=== PATIENT | female | born 1965 | race Caucasian/White ===

== ENCOUNTER → 2016-08-26 | Emergency (ER) | payer BC ==
[2016-08-26 18:22] VITALS: BP 125/106; PULSE 79; RESP 14; TEMP 98.6; O2SAT 96
--- NOTE | 2016-08-26 19:02 | UCPHY ---
H & P Patient Type: Established Chief Complaint Nursing Narrative: fever, pain,swelling,redness LLE for 1 day Time Seen by Provider: 08/26/16 18:50 HPI/ROS: CHIEF COMPLAINT: Cellulitis HISTORY OF PRESENT ILLNESS: The patient is a 51-year-old female with a history of type 2 diabetes who comes to the Urgent Care complaining of some erythema to her left leg. She 1st noticed it this morning. She had something similar 4 years ago that resulted in hospitalization in a diagnosis of sepsis. She denies any recent trauma or injury. She had a fever yesterday but does not today. No body aches. No difficulty breathing, no lightheadedness. REVIEW OF SYSTEMS: Constitutional: denies: chills, fever, recent illness, recent injury EENTM: denies: blurred vision, double vision, nose congestion Respiratory: denies: cough, shortness of breath Cardiac: denies: chest pain, irregular heart rate, lightheadedness, palpitations Gastrointestinal/Abdominal: denies: abdominal pain, diarrhea, nausea, vomiting, blood streaked stools Genitourinary: denies: dysuria, frequency, hematuria, pain Musculoskeletal: denies: joint pain, muscle pain Skin: See HPI Neurological: denies: headache, numbness, paresthesia, tingling, dizziness, weakness Hematologic/Lymphatic: denies: blood clots, easy bleeding, easy bruising Immunologic/allergic: denies: HIV/AIDS, transplant EXAM: GENERAL: Well-appearing, well-nourished and in no acute distress. HEAD: Atraumatic, normocephalic. EYES: Pupils equal round and reactive to light, extraocular movements intact, sclera anicteric, conjunctiva are normal. ENT: TMs normal, nares patent, oropharynx clear without exudates. Moist mucous membranes. NECK: Normal range of motion, supple without lymphadenopathy or JVD. LUNGS: Breath sounds clear to auscultation bilaterally and equal. No wheezes rales or rhonchi. HEART: Regular rate and rhythm without murmurs, rubs or gallops. ABDOMEN: Soft, nontender, normoactive bowel sounds. No guarding, no rebound. No masses appreciated. BACK: No CVA tenderness, no spinal tenderness, step-offs or deformities EXTREMITIES: Normal range of motion, no pitting or edema. No clubbing or cyanosis. NEUROLOGICAL: Cranial nerves II through XII grossly intact. Normal speech, normal gait. 5/5 strength, normal movement in all extremities, normal sensation PSYCH: Normal mood, normal affect. SKIN: 6 x 10 area of mild erythema over medial aspect of left lower leg. Several small healing wounds within the area. Mildly warm to the touch. No edema. Source: Patient Exam Limitations: No limitations - Personal History Current Tetanus Diphtheria and Acellular Pertussis (TDAP): Yes Tetanus Vaccine Date: unsure - Medical/Surgical History Hx Asthma: No Hx Chronic Respiratory Disease: No Hx Diabetes: Yes Hx Cardiac Disease: No Hx Renal Disease: No Hx Cirrhosis: No Hx Alcoholism: No Hx HIV/AIDS: No Hx Splenectomy or Spleen Trauma: No Other PMH: LAMENECTOMY L4-5, HYSTERECTOMY, C-SECT X3, ACHILIES TENDON, DEPRESSION, HTN,diabetes,thyroidectomy,parathyroidectomy,lithotripsy - Family History Significant Family History: No pertinent family hx - Social History Smoking Status: Never smoked Alcohol Use: None Drug Use: None Constitutional: Initial Vital Signs Temperature (C) 37 C 08/26/16 18:19 Heart Rate 79 08/26/16 18:19 Respiratory Rate 14 08/26/16 18:19 Blood Pressure 125/106 H 08/26/16 18:19 O2 Sat (%) 96 08/26/16 18:19 O2 Delivery Mode Room Air Allergies/Adverse Reactions: hydromorphone HCl [From Dilaudid] Allergy (Verified 08/26/16 18:17) Home Medications: Medication Instructions Recorded Effexor 01/29/16 Furosemide 01/29/16 Lisinopril 01/29/16 Potassium 01/29/16 Allopurinol 08/26/16 Cephalexin [Keflex] 500 mg PO TID #21 cap 08/26/16 Fluconazole [Diflucan (*)] 150 mg PO ONCE #1 tab 08/26/16 Metformin 1000 mg 08/26/16 Sulfamethox/Tmp 800/160 mg 1 tab PO BID #14 tab 08/26/16 [Bactrim Ds] Medical Decision Making ED Course/Re-evaluation: Patient has an early lower extremity cellulitis. She has x-rays on her phone of earlier this morning when actually looked worse. Start her on Keflex and Bactrim have her follow up with her primary within 48 hours. She understands and agrees with this plan. She declines any further workup or testing at this time. Differential Diagnosis: Partial list of the Differential diagnosis considered include but were not limited to; cellulitis, diabetic foot infection and although unlikely based on the history and physical exam, I also considered sepsis, osteomyelitis, abscess. I discussed these differential diagnoses and the plan with the patient as well as the usual and expected course. The patient understands that the diagnosis is provisional and that in medicine we are not always correct and that further workup is often warranted. Usual and customary warnings were given. All of the patient's questions were answered. The patient was instructed to return to the emergency department should the symptoms at all worsen or return, otherwise to followup with the physician as we discussed. Departure - Departure Disposition: Home, Routine, Self-Care Clinical Impression: Cellulitis Qualifiers: Site of cellulitis: extremity Site of cellulitis of extremity: lower extremity Laterality: left Qualified Code(s): L03.116 - Cellulitis of left lower limb Condition: Fair Instructions: Cellulitis (ED) Additional Instructions: Do not take your potassium supplement while your taking Bactrim. It can in decrease your potassium. Referrals: ABRAHAM JACKSON [Primary Care Provider] - 1-2 days without fail Prescriptions: Cephalexin [Keflex] 500 mg PO TID #21 cap Fluconazole [Diflucan (*)] 150 mg PO ONCE #1 tab Sulfamethox/Tmp 800/160 mg [Bactrim Ds] 1 tab PO BID #14 tab - PQRS PQRS Measurement: not applicable
== END | disposition home or self-care (01) ==
LOC: CED 18:04
DX: L03.116 Cellulitis of left lower limb (principal); E11.9 Type 2 diabetes mellitus without complications; I10 Essential (primary) hypertension
CPT/HCPCS: G0463-PO

== ENCOUNTER 2017-01-09 16:34 | Emergency (ER) | payer BC ==
[2017-01-09 16:45] VITALS: RESP 18; TEMP 98
[2017-01-09] MEDS ORDERED: OXYCODONE/APAP 5/325 TAB PO ONE (17:06)
[2017-01-09] MEDS ORDERED: DEXAMETHASONE 4 MG TAB PO ONE (17:07)
[2017-01-09] MEDS ORDERED: LIDOCAINE 5% 1 EA PATCH TD ONE (17:10)
--- NOTE | 2017-01-09 17:11 | EDPHY ---
H & P Time Seen by Provider: 01/09/17 16:48 HPI/ROS: CHIEF COMPLAINT: Back pain HISTORY OF PRESENT ILLNESS: 51-year-old female who has a long history of chronic low back pain and had a laminectomy 1995 presents with left-sided back discomfort radiating onto the anterior thigh. Patient had a deep tissue massage on Tuesday, specifically targeting the paraspinous muscles on the right and left lumbar area. She woke on Tuesday morning with significant pain in the left lower back. She tells me she was unable to get out of bed secondary to the pain. Pain has been persistent in her back and radiating onto the anterior thigh. She has had no pain below the level of the knee. She has been taking ibuprofen and using ice with some relief. No bowel or bladder difficulties. She took a friend's Soma today at 2 o'clock. She is concerned regarding her ability to go to work tomorrow. No fever, chills, chest pain, shortness of breath, palpitations, vomiting, diarrhea, urinary complaints, headache, lightheadedness. REVIEW OF SYSTEMS: Aside from elements discussed in the HPI, a comprehensive 10-point review of systems was reviewed and is negative. PAST MEDICAL HISTORY: Recently diagnosed with thyroid carcinoma status post thyroidectomy. Recently diagnosed with diabetes. SOCIAL HISTORY: Nonsmoker. General appearance: Alert, oriented, no acute respiratory distress. Some difficulty getting in and out of the gurney. Lungs are clear to auscultation. Regular rate and rhythm. Abdomen soft and nontender, no guarding or rebound. No CVA tenderness. Focused examination of back: No trauma is noted. No tenderness to palpation along the spine. Left Paraspinous muscle spasm is present. Neurological exam: Straight leg raise test is negative bilaterally. Hip flexion, knee extension, knee flexion, dorsiflexion and plantar flexion are 5/ 5 bilaterally. EHL 5 over 5. Sensation is intact to light touch throughout. 2 + knee and ankle jerk bilaterally. Vascular exam: Dorsalis pedis and posterior tibial pulses are intact. Brisk capillary refill. Smoking Status: Never smoked Constitutional: Initial Vital Signs Temperature (C) 36.6 C 01/09/17 16:43 Heart Rate 82 01/09/17 16:43 Respiratory Rate 18 01/09/17 16:43 Blood Pressure 149/81 H 01/09/17 16:43 O2 Sat (%) 97 01/09/17 16:43 O2 Delivery Mode Room Air Allergies/Adverse Reactions: hydromorphone HCl [From Dilaudid] Allergy (Verified 08/26/16 18:17) Home Medications: Medication Instructions Recorded Effexor 01/29/16 Furosemide 01/29/16 Lisinopril 01/29/16 Potassium 01/29/16 Allopurinol 08/26/16 Fluconazole [Diflucan (*)] 150 mg PO ONCE #1 tab 08/26/16 Metformin 1000 mg 08/26/16 Cyclobenzaprine [Flexeril 10 MG 10 mg PO TID PRN #20 tab 01/09/17 (RX)] methylPREDNISolone [Medrol Dose 4 mg PO DAILY #1 each 01/09/17 Tripp] oxyCODONE/APAP 5/325 [Percocet 1 tab PO QID PRN #20 tab 01/09/17 5/325 (*)] Medical Decision Making ED Course/Re-evaluation: 53-year-old female with history of back pain presents with a exacerbation of her pain after receiving a deep tissue massage 2 days ago. Patient has no evidence of acute disc herniation. She does have pain which radiates onto the anterior thigh. There is no weakness. No signs of cauda equina. Patient does report that she has kidney stones in the right kidney. Urinalysis was checked to evaluate for signs of significant myoglobin anemia or dehydration from the deep tissue massage. Patient has negative ketones, negative glucose, 3-5 red cells in her urine. I do not believe she has a kidney stone complicating her presentation. Patient had taken ibuprofen and Soma prior to presentation. In the emergency department she received a lidocaine patch, Decadron 8 mg p.o., and a Percocet tablet. She was discharged with a Percocet prepack, Flexeril prepack, and a prescription for Medrol Dosepak, Flexeril, and Percocet. Patient was referred to Neurosurgery to follow-up if her symptoms were not improving as expected. She also follow up with the primary care physician. Precautions regarding back pain are given. Differential Diagnosis: After history was obtained and physical exam performed, the differential for back pain was considered including but not limited to muscular pain, herniated disc, spine fracture, cauda equina, diskitis, transverse myelitis, intra-abdominal causes, and urinary tract infection. - Data Points Laboratory Results: 01/09/17 17:35 Urine Color YELLOW Urine Appearance CLEAR Urine pH 5.5 (5.0-7.5) Ur Specific [place] 1.020 (1.002-1.030) Urine Protein NEGATIVE (NEGATIVE) Urine Ketones NEGATIVE (NEGATIVE) Urine Blood 1+ H (NEGATIVE) Urine Nitrate NEGATIVE (NEGATIVE) Urine Bilirubin NEGATIVE (NEGATIVE) Urine Urobilinogen 0.2 EU EU (0.2-1.0) Ur Leukocyte Esterase NEGATIVE (NEGATIVE) Urine RBC 3-5 /hpf H /hpf (0-3) Urine WBC 0-1 /hpf /hpf (0-3) Ur Epithelial Cells 3+ /lpf H /lpf (NONE-1+) Amorphous Sediment 1+ /hpf /hpf (NONE-1+) Urine Bacteria 2+ /hpf H /hpf (NONE SEEN) Urine Mucus 1+ /lpf /lpf (NONE-1+) Urine Glucose NEGATIVE (NEGATIVE) Medications Given: Discontinued Medications Dexamethasone (Decadron) 8 mg PO EDNOW ONE Stop: 01/09/17 17:08 Last Admin: 01/09/17 17:25 Dose: 8 mg Lidocaine (Lidoderm 5%) 1 ea TD EDNOW ONE Stop: 01/09/17 17:11 Last Admin: 01/09/17 17:27 Dose: 1 ea Oxycodone/Acetaminophen (Percocet 5/325) 1 tab PO EDNOW ONE Stop: 01/09/17 17:07 Last Admin: 01/09/17 17:27 Dose: 1 tab Oxycodone/Acetaminophen (Percocet 5/325mg Prepack#4) 1 btl TAKEHOME EDNOW ONE Stop: 01/09/17 17:30 Last Admin: 01/09/17 17:33 Dose: 1 btl Departure - Departure Disposition: Home, Routine, Self-Care Clinical Impression: Back pain Qualifiers: Back pain location: low back pain Chronicity: acute Back pain laterality: left Sciatica presence: without sciatica Qualified Code(s): M54.5 - Low back pain Condition: Good Instructions: Acute Low Back Pain (ED), Lumbar Radiculopathy (ED) Additional Instructions: Musculoskeletal pain is often treated with anti-inflammatories, muscle relaxants , and pain medications. 1.I recommend Ibuprofen (Motrin, Advil) or Naproxen Sodium (Aleve) for pain and anti-inflammatory effects. You may take either one, but do not take both. Your dose is: Ibuprofen 600 mg every 6-8 hours with food. OR Naproxen Sodium (Aleve) 220 mg every 12 hours. You have also been given a prescription for a Medrol Dosepak to use as directed to treat inflammation. Please begin taking this tomorrow. 2. For muscle relaxation, you been given a prescription of Flexeril. Please take this as directed. It may make you sleepy. 3. For pain relief, I suggest high-dose Tylenol (650mg-1000mg of Tylenol) up to 3 times a day. Not exceed 3000 mg in a 24 hour period. I also suggest lidocaine patches. 4% lidocaine patches are available over-the- counter. 4. You been given a prescription for oxycodone. You may use this as needed for pain not controlled with the above treatments. Apply ice for 20-30 minutes every 2-3 hours for the next 48 hours. After 48 hours, a heating pad or hot tub may feel better. Please follow up with your primary care physician if you're not improving as expected in the next several days. Consider physical therapy or chiropractic followup for persistent discomfort. Return to the emergency department if you experience significantly worsening pain, pain radiating into the legs, weakness, numbness or tingling, difficulties with bowel or bladder, fever, nausea, vomiting, or other concerns. Referrals: Armando Davies MD [Medical Doctor] - As per Instructions Stand Alone Forms: Work Excuse Prescriptions: Cyclobenzaprine [Flexeril 10 MG (RX)] 10 mg PO TID PRN #20 tab PRN Reason: Muscle Spasms methylPREDNISolone [Medrol Dose Tripp] 4 mg PO DAILY #1 each oxyCODONE/APAP 5/325 [Percocet 5/325 (*)] 1 tab PO QID PRN #20 tab PRN Reason: Pain
[2017-01-09] MEDS ORDERED: OXYCODONE/APAP 5/325MG PREPACK#4 BTL TAKEHOME ONE ×2 (17:20→17:29)
[2017-01-09 17:39] LABS: COLOR YELLOW; LEUKOCYTE ESTERASE,URINE NEGATIVE (NEGATIVE); NITRITE,URINE NEGATIVE (NEGATIVE); PH,URINE 5.5 (5.0-7.5)
[2017-01-09 17:48] LABS: BACTERIA 2+ /hpf (NONE SEEN); MUCUS 1+ /lpf (NONE-1+); WBC,URINE 0-1 /hpf (0-3)
[2017-01-09 17:49] LABS: AMORPHOUS 1+ /hpf (NONE-1+)
[2017-01-09 18:03] VITALS: O2SAT 94
[2017-01-09 18:04] VITALS: BP 147/85; PULSE 75
[2017-01-09] MEDS ORDERED: PATCH REMOVAL 1 EA PATCH TD SCH (21:00)
== END 2017-01-09 18:08 | disposition home or self-care (01) ==
LOC: CED 16:34
DX: M54.5 Low back pain (principal); E11.9 Type 2 diabetes mellitus without complications; Z79.84 Long term (current) use of oral hypoglycemic drugs; Z85.850 Personal history of malignant neoplasm of thyroid
CPT/HCPCS: 81003-PO; 81015-PO

== ENCOUNTER 2018-03-08 18:57 | Emergency (ER) | payer BC ==
[2018-03-08] MEDS ORDERED: HALOPERIDOL LACT 5 MG/ML INJ IVP ONE ×2 (19:32→20:33)
--- NOTE | 2018-03-08 19:37 | EDPHY ---
H & P Stated Complaint: c/o N/V/D abd and Lt flank pain since yesterday Time Seen by Provider: 03/08/18 19:01 HPI/ROS: CHIEF COMPLAINT: Diarrhea and abdominal pain History by patient HISTORY OF PRESENT ILLNESS: 49-year-old woman with a history of multiple C- sections, kidney stones, hypertension and diabetes presents complaining of 2 days of which he describes as black the"bloody and"diarrhea associated with nausea and vomiting. Symptoms persisted today and then she developed lower abdominal pain which she describes as feeling like she was kicked in the lower abdomen. She also says she has some mild left lower back pain with the abdominal pain is worse and feels different than the usual kidney stone. She has no prior history of GI bleeding. She denies NSAID use. She does drink several glasses of wine daily, but has not been drinking more than usual.. She denies syncope but says this is the worst she has ever felt in her life. She did not fill any of her medicines except for metformin today because of the nausea and vomiting although she was able to eat [employer] in the middle today. She denies any fever. She denies any dysuria, urgency or frequency or hematuria. She has not taken anything for this symptoms at home. She denies any unusual food exposures or ill contacts. She says her blood sugars have been 120 and 170 today. REVIEW OF SYSTEMS: As in HPI, and all other systems reviewed and are negative Source: Patient - Personal History LMP (Females 10-55): Hysterectomy Current Tetanus Diphtheria and Acellular Pertussis (TDAP): Yes Tetanus Vaccine Date: unsure - Medical/Surgical History Hx Asthma: No Hx Chronic Respiratory Disease: No Hx Diabetes: Yes Hx Cardiac Disease: No Hx Renal Disease: No Hx Cirrhosis: No Hx Alcoholism: No Hx HIV/AIDS: No Hx Splenectomy or Spleen Trauma: No Other PMH: LAMENECTOMY L4-5, HYSTERECTOMY, C-SECT X3, ACHILIES TENDON, DEPRESSION, HTN,diabetes,thyroidectomy,parathyroidectomy,lithotripsy - Social History Smoking Status: Never smoked - Physical Exam Exam: General Appearance: Alert, hyperventilating, no eye contact Head: normocephalic, atraumatic Eyes: Pupils equal and round, reactive to light, no pallor or injection. Mouth: Mucous membranes moist. Oropharynx clear Neck: No bony tenderness, full range of motion Respiratory: Normal, effort, lungs are clear to auscultation. No wheezes, rales or rhonchi. Cardiovascular: Regular rate and rhythm. S1, S2, no murmurs, gallops or rubs appreciated Gastrointestinal: Abdomen is soft and mild diffuse tender, no masses, bowel sounds normal. Rectal: Normal tone, brown stool, trace guaiac positive on 1 of 2 Back: Very mild CVA tenderness, no bony tenderness Neurological: Awake, alert and oriented x 3, cranial nerves 2-12 intact, no pronator drift, normal gait, Skin: Warm and dry, no rashes. Musculoskeletal: No deformities or tenderness. Extremities: full range of motion, no edema, DP2+ bilat Psychiatric: Patient has normal affect, there is no agitation. Constitutional: Initial Vital Signs Temperature (C) 36.6 C 03/08/18 19:09 Heart Rate 89 03/08/18 19:09 Respiratory Rate 20 03/08/18 19:09 Blood Pressure 185/88 H 03/08/18 19:09 O2 Sat (%) 100 03/08/18 19:09 O2 Delivery Mode Room Air Allergies/Adverse Reactions: hydromorphone HCl [From Dilaudid] Allergy (Verified 08/26/16 18:17) Home Medications: Medication Instructions Recorded Effexor 01/29/16 Lisinopril 01/29/16 Potassium 01/29/16 Allopurinol 08/26/16 Metformin 1000 mg 08/26/16 Cyclobenzaprine [Flexeril 10 MG 10 mg PO TID PRN #20 tab 01/09/17 (RX)] oxyCODONE/APAP 5/325 [Percocet 1 tab PO QID PRN #20 tab 01/09/17 5/325 (*)] Ondansetron Odt [Zofran Odt 4 mg 4 mg PO Q4 PRN #12 tab 03/08/18 (*)] Medical Decision Making - Diagnostics Imaging Results: Imaging Impressions Abdomen CT 03/08/18 20:24 Impression: 1. No findings to suggest colitis or diverticulitis. 2. Multiple renal findings as detailed above. As clinically directed renal sonography could be obtained. 3. See above report for additional findings. Results called and discussed with Lorri Barrientos MD on 03/08/2018 at 22:06. Imaging: Discussed imaging studies w/ orthopedically impaired teacher Radiologist ED Course/Re-evaluation: 52-year-old woman with a history of hypertension, thyroidectomy, kidney stones and type 2 diabetes presents complaining of diarrhea, vomiting and abdominal pain. On arrival patient was hyperventilating. Her abdominal exam was non peritoneal. She vomited once in the ED which was described as brown but the nurse but not coffee grounds or bloody. Patient was given IV fluids and Haldol with some improvement but she continued to complain of persistent pain and nausea. Patient was therefore given a 2nd dose of IV Haldol as well as fentanyl. Labs were notable for low potassium, low bicarb, elevated anion gap elevated liver enzymes and GTT. Patient had elevated white blood cell count. Patient also had an elevated hemoglobin and hematocrit consistent with dehydration. Urinalysis was positive for ketones and blood. Patient's sister does tell me that she has a known renal stone. I was concerned about colitis, diverticulitis and appendicitis with her pain, elevated white blood cell count and low bicarb. Lipase was within normal limits. CT scan was obtained. She was given a 2nd L normal saline. After discussion with the radiologist the CT scan showed no evidence of acute, serious intra-abdominal disease. On re-evaluation the patient was feeling much better and tolerating oral fluids. Patient has been rehydrated here. We discussed the need to hydrate at home as well as eat high potassium rich foods such as bananas. We discussed return precautions. Patient will follow up with primary care physician to recheck her liver enzymes which were slightly elevated. - Data Points Laboratory Results: 03/08/18 03/08/18 03/08/18 20:22 20:05 19:52 POC Hgb 17.0 gm/dL H gm/dL (12.6-16.3) POC Hct 50 % H % (38-47) POC Sodium 137 mEq/L mEq/L 139 mEq/L mEq/L (135-145) (135-145) POC Potassium 3.1 mEq/L L mEq/L 2.9 mEq/L L mEq/L (3.3-5.0) (3.3-5.0) POC Chloride 102 mEq/L mEq/L 98.0 mEq/L mEq/L (97-110) (97-110) POC Total CO2 16 mEq/L L mEq/L (22-31) POC BUN 16 mg/dL mg/dL 14 mg/dL mg/dL (7-23) (7-23) POC Creatinine 0.9 mg/dL mg/dL 0.8 mg/dL mg/dL (0.6-1.0) (0.6-1.0) POC Glucose 167 mg/dL H mg/dL 166 mg/dL H mg/dL (70-100) (70-100) POC Calcium 10.5 mg/dL H mg/dL (8.5-10.4) POC Total Bilirubin 0.9 mg/dL mg/dL (0.1-1.4) POC GGT 361 IU/L H IU/L (5-65) POC AST 48 IU/L H IU/L (14-46) POC ALT 76 IU/L H IU/L (9-52) POC Alk Phosphatase 87 IU/L IU/L (38-126) POC Total Protein 8.0 g/dL g/dL (6.3-8.2) POC Albumin 4.8 g/dL g/dL (3.5-5.0) POC Amylase 41 IU/L IU/L (30-110) Lipase 03/08/18 19:10 POC Hgb POC Hct POC Sodium POC Potassium POC Chloride POC Total CO2 POC BUN POC Creatinine POC Glucose POC Calcium POC Total Bilirubin POC GGT POC AST POC ALT POC Alk Phosphatase POC Total Protein POC Albumin POC Amylase Lipase 150 IU/L IU/L (23-300) Medications Given: Discontinued Medications Diphenhydramine HCl (Benadryl Injection) 25 mg IVP EDNOW ONE Stop: 03/08/18 19:33 Last Admin: 03/08/18 19:41 Dose: 25 mg Fentanyl (Sublimaze) 50 mcg IVP EDNOW ONE Stop: 03/08/18 20:34 Last Admin: 03/08/18 20:40 Dose: 50 mcg Fentanyl (Sublimaze) 50 mcg IVP EDNOW ONE Stop: 03/08/18 21:19 Last Admin: 03/08/18 21:24 Dose: 50 mcg Haloperidol Lactate (Haldol Injection) 2.5 mg IVP EDNOW ONE Stop: 03/08/18 19:33 Last Admin: 03/08/18 19:42 Dose: 2.5 mg Haloperidol Lactate (Haldol Injection) 2.5 mg IVP EDNOW ONE Stop: 03/08/18 20:34 Last Admin: 03/08/18 20:40 Dose: 2.5 mg Sodium Chloride (Ns) 1,000 mls @ 0 mls/hr IV ONCE ONE PRN Reason: Wide Open Stop: 03/08/18 20:34 Last Admin: 03/08/18 20:00 Dose: 1,000 mls Sodium Chloride (Ns) 1,000 mls @ 0 mls/hr IV ONCE ONE PRN Reason: Wide Open Stop: 03/08/18 21:10 Last Admin: 03/08/18 21:10 Dose: 1,000 mls Point of Care Test Results: CBC CBC Collection Date 03/08/18 CBC Collection Time 19:10 WBC 14.8 RBC 5.12 HGB 16.4 HCT 47.4 PLT 323 Neut # 12.3 Neut 82.9 LYMPH # 1.6 LYMPH 11 Other WBC # 0.9 Other WBC 6.1 MCV 92.6 Chemistry 03/08/18 03/08/18 03/08/18 20:22 20:05 19:52 POC Sodium 137 mEq/L mEq/L 139 mEq/L mEq/L (135-145) (135-145) POC Potassium 3.1 mEq/L L mEq/L 2.9 mEq/L L mEq/L (3.3-5.0) (3.3-5.0) POC Chloride 102 mEq/L mEq/L 98.0 mEq/L mEq/L (97-110) (97-110) POC Total CO2 16 mEq/L L mEq/L (22-31) POC BUN 16 mg/dL mg/dL 14 mg/dL mg/dL (7-23) (7-23) POC Creatinine 0.9 mg/dL mg/dL 0.8 mg/dL mg/dL (0.6-1.0) (0.6-1.0) POC Glucose 167 mg/dL H mg/dL 166 mg/dL H mg/dL (70-100) (70-100) POC Calcium 10.5 mg/dL H mg/dL (8.5-10.4) POC Total Bilirubin 0.9 mg/dL mg/dL (0.1-1.4) POC GGT 361 IU/L H IU/L (5-65) POC AST 48 IU/L H IU/L (14-46) POC ALT 76 IU/L H IU/L (9-52) POC Alk Phosphatase 87 IU/L IU/L (38-126) POC Total Protein 8.0 g/dL g/dL (6.3-8.2) POC Albumin 4.8 g/dL g/dL (3.5-5.0) POC Amylase 41 IU/L IU/L (30-110) ISTAT H&H 03/08/18 20:22 POC Hgb 17.0 gm/dL H gm/dL (12.6-16.3) POC Hct 50 % H % (38-47) Liver Function Tests LFT Collection Date 03/08/18 LFT Collection Time 19:10 Occult Blood Occult Blood Collection Date 03/08/18 Occult Blood Collection Time 19:30 Occult Blood Result Positive/Negative Urine Dip Collection Date 03/08/18 Collection Time 20:25 Specific [place] (1.002-1.030) 1.020 PH (5.0-7.5) 6.0 Leukocytes (Negative) Negative Nitrites (Negative) Negative Protein (Negative) 1+ Glucose (Negative) Negative Ketones (Negative) 3+ Urobilnogen (0.2-1.0 EU) 0.2 Bilirubin (Negative) Negative Blood (Negative) 1+ Departure - Departure Disposition: Home, Routine, Self-Care Clinical Impression: Vomiting and diarrhea, Dehydration Abdominal pain Qualifiers: Abdominal location: generalized Qualified Code(s): R10.84 - Generalized abdominal pain Condition: Fair Instructions: Dehydration (ED), Gastroenteritis (ED) Additional Instructions: You were seen by Dr. Lorri Barrientos today. Your CT scan showed no evidence of serious infection or abnormality. Please continue drink plenty of fluids. You may take Zofran as needed for nausea and vomiting. Try to eat bananas to get your potassium back up. Otherwise you may eat what you feel like eating. Please follow up with primary care physician to have your liver enzymes rechecked as these were slightly abnormal today. Return for any worsening or new concerns, including but not limited to fever, inability to keep down fluids or medications or severe pain. Referrals: LATRICE MCBRIDE [Primary Care Provider] - As per Instructions Prescriptions: Ondansetron Odt [Zofran Odt 4 mg (*)] 4 mg PO Q4 PRN #12 tab PRN Reason: Nausea and vomiting
[2018-03-08] MEDS ORDERED: IOPAMIDOL (ISOVUE-300) 100 ML BTL ONE (20:32)
[2018-03-08] MEDS ORDERED: fentaNYL 100 MCG/2 ML INJ IVP ONE ×2 (20:33→21:18)
[2018-03-08] MEDS ORDERED: NS 1,000 ML IV ONE ×2 (20:33→21:09)
[2018-03-08 22:08] VITALS: BP 154/88
[2018-03-08] MEDS ORDERED: ONDANSETRON 4MG PREPACK#2 BTL TAKEHOME ONE (22:28)
== END 2018-03-08 22:46 | disposition home or self-care (01) ==
LOC: CED 18:57
DX: R19.7 Diarrhea, unspecified (principal); E86.0 Dehydration; R11.10 Vomiting, unspecified; R10.9 Unspecified abdominal pain; I10 Essential (primary) hypertension; E11.9 Type 2 diabetes mellitus without complications
CPT/HCPCS: 74177-PO; 80048-PO; 80076-PO; 82150-PO; 82435-PO; 82565-PO; 82947-PO; 84132-PO; 84295-PO; 84520-PO; 85014-PO; 96374; J1200; J1630; J3010; Q9967

== ENCOUNTER 2018-09-16 08:32 | Emergency (ER) | payer BC, OTHER ==
[2018-09-16 08:50] VITALS: BP 147/92
--- NOTE | 2018-09-16 08:55 | EDPHY ---
H & P Stated Complaint: 4 days r elbow and arm swelling redness , worsening last pm Time Seen by Provider: 09/16/18 08:45 HPI/ROS: Chief Complaint: Right elbow pain HPI: 53-year-old type 2 diabetic presenting with pain over her right elbow for the last several days. He had last night she noticed some redness and some warmth. It hurts to fully flex and fully extend. Did have a little bit of tightness in her right forearm. No traumatic injuries. Does not rest frequently on her elbows. No fevers or chills. ROS: 10 systems were reviewed and were negative except those elements noted in the HPI. PMH: Type 2 diabetes Social History: No smoking, no alcohol, no recreational drug use Family History: non-contributory Physical Exam: General: Awake, alert, no acute distress Right upper extremity: Patient has some moderate erythema with tenderness over her right olecranon bursa. There is no surrounding erythema. She has full flexion ext and extension. There is no erythema outside of the bursa. Very mild fluctuance Skin: Per upper extremity, the otherwise no rash - Personal History LMP (Females 10-55): Hysterectomy Current Tetanus/Diphtheria Vaccine: Unsure Current Tetanus Diphtheria and Acellular Pertussis (TDAP): Unsure Tetanus Vaccine Date: unsure - Medical/Surgical History Hx Asthma: No Hx Chronic Respiratory Disease: No Hx Diabetes: Yes Hx Cardiac Disease: No Hx Renal Disease: No Hx Cirrhosis: No Hx Alcoholism: No Hx HIV/AIDS: No Hx Splenectomy or Spleen Trauma: No Other PMH: LAMENECTOMY L4-5, HYSTERECTOMY, C-SECT X3, ACHILIES TENDON, DEPRESSION, HTN,diabetes,thyroidectomy,parathyroidectomy,lithotripsy - Social History Smoking Status: Never smoked Constitutional: Initial Vital Signs Temperature (C) 37 C 09/16/18 08:39 Heart Rate 92 09/16/18 08:39 Respiratory Rate 16 09/16/18 08:39 Blood Pressure 147/92 H 09/16/18 08:39 O2 Sat (%) 94 09/16/18 08:39 O2 Delivery Mode Room Air Allergies/Adverse Reactions: No Known Allergies Allergy (Unverified 09/16/18 08:39) Home Medications: Medication Instructions Recorded Effexor 01/29/16 Lisinopril 01/29/16 Metformin 1000 mg 08/26/16 Cephalexin [Keflex (*)] 500 mg PO Q6H #40 cap 09/16/18 Levothyroxine 09/16/18 Medical Decision Making ED Course/Re-evaluation: 53-year-old woman with an olecranon bursitis. Will start her on Keflex and referred to Orthopedics for follow-up. Departure - Departure Disposition: Home, Routine, Self-Care Clinical Impression: Olecranon bursitis Condition: Good Instructions: Elbow Bursitis (ED) Additional Instructions: Please take your full course of antibiotics. Follow up with orthopedic surgeon in 2-3 days for re-evaluation. Return to the emergency department if the redness continues to spread, you have increasing pain, streaking up your arm, fever, or any other concerns. Referrals: Lawson Dowling MD [Medical Doctor] - As per Instructions Prescriptions: Cephalexin [Keflex (*)] 500 mg PO Q6H #40 cap
== END 2018-09-16 09:05 | disposition home or self-care (01) ==
LOC: CED 08:32
DX: M70.21 Olecranon bursitis, right elbow (principal); I10 Essential (primary) hypertension; E11.9 Type 2 diabetes mellitus without complications; F32.9 Major depressive disorder, single episode, unspecified
CPT/HCPCS: 99283-ER

== ENCOUNTER 2018-10-21 01:09 | Emergency (ER) | payer OTHER | END 2018-10-21 03:55 | disposition short-term general hospital (02) | LOC: CED 01:09 ==